=== PATIENT | female | born 1960 | race Caucasian/White ===

== ENCOUNTER 2023-07-26 11:59 | Inpatient (IN) ==
[2023-07-26] MEDS ORDERED: EPINEPHrine SYR 0.1MG/ML 10 ml SYRINGE IV ONE (12:05)
[2023-07-26] MEDS ORDERED: Atropine 0.1 MG/ML 10 ml SYR (1 mg) ONE (12:05)
[2023-07-26 12:22] LABS: ABS Basophils 0.1 10^3/uL (0.0-0.1); ABS Lymphocytes 0.9 10^3/uL (1.0-4.8); ABS Monocytes 0.6 10^3/uL (0.0-0.9); ABS Neutrophils 8.1 10^3/uL (1.5-7.6); Eosinophil % 0.5 %; Hematocrit 32.9 % (35-45); Hemoglobin 11.3 g/dL (11.5-14.3); Mean Corpuscular Hemoglobin 34.7 pg (27-33); Mean Corpuscular Hgb Conc 34.4 g/dL (31-36); Mean Corpuscular Volume 100.7 fL (80-97); Mean Platelet Volume 7.4 fL (7.5-11.2); Platelet Count 256 10^3/uL (150-450); Red Blood Count 3.27 10^6/uL (3.63-4.92); Red Cell Distribution Width 13.1 % (12-17); White Blood Count 9.8 10^3/uL (3.8-11.8)
[2023-07-26 12:32] LABS: Urine Appearance Clear; Urine Bilirubin Negative (Negative); Urine Blood Negative (Negative); Urine Color Light-Yellow; Urine Glucose 1+ (>=70 mg/dL) (Negative); Urine Ketones 2+ (Negative); Urine Nitrite Negative (Negative); Urine Protein Negative (Negative); Urine Specific Gravity 1.011 (1.002-1.030); Urine Urobilinogen Negative (Negative); Urine pH 6.5 (5.0-8.0)
[2023-07-26] MEDS: Rocuronium 50 mg VIAL 10 mg/ml 5 ml VIAL (50 mg) IV ONE (12:56)
[2023-07-26] MEDS: Lactated Ringers 1000 ml BAG 1,000 ML IV ONE (12:57)
[2023-07-26] MEDS: Etomidate 20 mg/10 ml 2 MG/ML 10 ml VIAL IV ONE (12:57)
[2023-07-26 13:04] LABS: Albumin 3.6 g/dL (3.2-5.2); Albumin/Globulin Ratio 1.7 (1-3); Calcium 8.2 mg/dL (8.6-10.3); Creatinine, Serum 0.51 mg/dL (0.51-0.95); Globulin 2.1 g/dL (2-4); Potassium 3.2 mmol/L (3.5-5.0); Total Bilirubin 0.3 mg/dL (0.2-1.0); Total Protein 5.7 g/dL (6.4-8.9); eGFR CKD-EPI 105.5 (>60)
[2023-07-26] MEDS: Propofol 10 mg/ml 100 ML BTL 1,000 MG/100 ML BTL IV SCH (13:16)
[2023-07-26 13:28] LABS: INR 1.05 (0.83-1.13)
[2023-07-26] MEDS: Atropine 1 MG/ML INJ 1 ML VIAL IV PUSH ONE (13:31)
[2023-07-26] MEDS: levETIRAcetam 1000MG IVPREMIX 1,000 MG/100 ML BAG IVPB ONE ×2 (14:21)
[2023-07-26] MEDS: fentaNYL INFUSION 50 mcg/mL VL 2,500 MCG/50 ML VIAL IV SCH (14:31)
[2023-07-26] MEDS: MANNITOL IV ONE (14:50)
[2023-07-26] MEDS: niCARdipine 0.1MG/ML IVPREMIX 20 MG/200 ML BAG IV SCH (15:18)
[2023-07-26 16:08] LABS: PCO2 Arterial 46 mmHg (35-45)
[2023-07-26 16:13] LABS: PO2 Arterial 53 mmHg (80-100)
[2023-07-26] MEDS ORDERED: Propofol 10 mg/ml 100 ML BTL 1,000 MG/100 ML BTL ONE (16:19)
[2023-07-26] MEDS ORDERED: Norepinephrine 4 MG/250mL D5W 4,000 MCG/250 ML BAG IV ONE (18:37)
[2023-07-26 20:03] VITALS: BP 105/53
[2023-07-26 20:29] LABS: Resp Rate 18
[2023-07-26 20:31] LABS: PCO2 Arterial 34 mmHg (35-45); PO2 Arterial 231 mmHg (80-100)
[2023-07-26] MEDS: Norepinephrine 4 MG/250mL D5W 4,000 MCG/250 ML BAG IV SCH (21:39)
[2023-07-26] MEDS: Chlorhexidine MOUTHWASH 0.12% 15 ML UDC TOPICAL SCH (21:45)
[2023-07-27] MEDS ORDERED: Atropine 0.1 MG/ML 10 ml SYR (1 mg) IV PUSH PRN (00:10)
[2023-07-27 00:29] LABS: ABS Basophils 0.1 10^3/uL (0.0-0.1); ABS Lymphocytes 0.4 10^3/uL (1.0-4.8); ABS Monocytes 1.4 10^3/uL (0.0-0.9); ABS Neutrophils 15.8 10^3/uL (1.5-7.6); Hematocrit 36.4 % (35-45); Hemoglobin 12.3 g/dL (11.5-14.3); Lymphocyte % 2.3 %; Mean Corpuscular Hemoglobin 33.6 pg (27-33); Mean Corpuscular Hgb Conc 33.7 g/dL (31-36); Mean Corpuscular Volume 99.5 fL (80-97); Mean Platelet Volume 8.1 fL (7.5-11.2); Platelet Count 303 10^3/uL (150-450); Red Blood Count 3.66 10^6/uL (3.63-4.92); Red Cell Distribution Width 13.2 % (12-17); White Blood Count 17.7 10^3/uL (3.8-11.8)
[2023-07-27 00:38] LABS: Urine Appearance Clear; Urine Bilirubin Negative (Negative); Urine Blood 2+ (Negative); Urine Color Yellow; Urine Glucose Negative (Negative); Urine Ketones 3+ (Negative); Urine Nitrite Negative (Negative); Urine Protein Negative (Negative); Urine Specific Gravity 1.041 (1.002-1.030); Urine Urobilinogen Negative (Negative); Urine pH 5.5 (5.0-8.0)
[2023-07-27 00:46] LABS: Urine Bacteria Absent /HPF (Absent); Urine Red Blood Cell 2+(6-10/hpf) /HPF (0-Trace); Urine Squamous Epithelial Cell Present /HPF (Absent); Urine White Blood Cell 2+(11-20/hpf) /HPF (0-Trace)
[2023-07-27 00:58] LABS: Albumin 4.2 g/dL (3.2-5.2); Albumin/Globulin Ratio 1.6 (1-3); Calcium 9.1 mg/dL (8.6-10.3); Creatinine, Serum 0.57 mg/dL (0.51-0.95); Globulin 2.6 g/dL (2-4); Potassium 3.8 mmol/L (3.5-5.0); Total Bilirubin 0.4 mg/dL (0.2-1.0); Total Protein 6.8 g/dL (6.4-8.9); eGFR CKD-EPI 102.7 (>60)
[2023-07-27 07:26] LABS: Activated Partial Thrombo Time 27.3 seconds (26.0-38.0); INR 1.05 (0.83-1.13)
[2023-07-27 09:25] LABS: ABS Basophils 0.1 10^3/uL (0.0-0.1); ABS Lymphocytes 0.3 10^3/uL (1.0-4.8); ABS Monocytes 1.1 10^3/uL (0.0-0.9); Hematocrit 35.2 % (35-45); Hemoglobin 11.9 g/dL (11.5-14.3); Lymphocyte % 1.5 %; Mean Corpuscular Hemoglobin 33.7 pg (27-33); Mean Corpuscular Hgb Conc 33.8 g/dL (31-36); Mean Corpuscular Volume 99.4 fL (80-97); Mean Platelet Volume 8.2 fL (7.5-11.2); Platelet Count 268 10^3/uL (150-450); Red Blood Count 3.54 10^6/uL (3.63-4.92); Red Cell Distribution Width 13.3 % (12-17); White Blood Count 19.5 10^3/uL (3.8-11.8)
[2023-07-27 09:30] LABS: Albumin 4.2 g/dL (3.2-5.2); Albumin/Globulin Ratio 1.6 (1-3); Calcium 9.4 mg/dL (8.6-10.3); Creatinine, Serum 0.56 mg/dL (0.51-0.95); Globulin 2.7 g/dL (2-4); Potassium 3.7 mmol/L (3.5-5.0); Total Bilirubin 0.4 mg/dL (0.2-1.0); Total Protein 6.9 g/dL (6.4-8.9); eGFR CKD-EPI 103.1 (>60)
[2023-07-27 13:33] LABS: ABS Lymphocytes 0.3 10^3/uL (1.0-4.8); ABS Monocytes 1.2 10^3/uL (0.0-0.9); ABS Neutrophils 18.1 10^3/uL (1.5-7.6); Eosinophil % 0.1 %; Hematocrit 34.1 % (35-45); Hemoglobin 11.5 g/dL (11.5-14.3); Lymphocyte % 1.7 %; Mean Corpuscular Hemoglobin 33.6 pg (27-33); Mean Corpuscular Hgb Conc 33.8 g/dL (31-36); Mean Corpuscular Volume 99.4 fL (80-97); Mean Platelet Volume 7.7 fL (7.5-11.2); Platelet Count 284 10^3/uL (150-450); Red Blood Count 3.43 10^6/uL (3.63-4.92); Red Cell Distribution Width 13.2 % (12-17); White Blood Count 19.7 10^3/uL (3.8-11.8)
[2023-07-27 13:37] LABS: INR 1.11 (0.83-1.13)
[2023-07-27 13:52] LABS: Albumin/Globulin Ratio 1.6 (1-3); Calcium 9.1 mg/dL (8.6-10.3); Creatinine, Serum 0.61 mg/dL (0.51-0.95); Globulin 2.5 g/dL (2-4); Magnesium 2.1 mg/dL (1.9-2.7); Phosphorus 3.3 mg/dL (2.5-5.0); Potassium 3.9 mmol/L (3.5-5.0); Total Bilirubin 0.4 mg/dL (0.2-1.0); Total Protein 6.5 g/dL (6.4-8.9)
[2023-07-27] MEDS ORDERED: Morphine ORAL CONCENTRATE 5 MG/0.25 ML ORAL.SYRIN SL PRN (17:23)
[2023-07-27] MEDS ORDERED: LORazepam 2 mg VIAL 1 ml IV PUSH PRN (17:23)
[2023-07-27] MEDS ORDERED: Morphine 2 MG/ML SYRINGE IV PRN (17:23)
[2023-07-27] MEDS ORDERED: Heparin 1,000 UNIT/ML 10 ml (10,000 UNITS) CATHLAB/DIALYSIS IV ONE (17:32)
== END 2023-07-27 22:12 | disposition expired | DRG 44 ==
LOC: ED 11:59 → EDHOLD 18:59 → ICU 19:24 → UNDODISIN 07-27 17:51
PROVIDERS: ADMIT Internal Medicine; ATTEND Internal Medicine